=== PATIENT | female | born 1995 | race Caucasian/White ===

== ENCOUNTER → 2020-11-25 | Outpatient (CLI) | payer OTHER ==
--- NOTE | 2020-11-25 12:28 | REP ---
INDICATION: PAINFUL RT BREAST LUMP 12:00 POSITION ABOVE AREOLA. COMPARISON: None TECHNIQUE: Real-time sonographic evaluation of right breast performed. FINDINGS: The region of the painful palpable lump at 12 o'clock there is no evidence of a cystic or solid nodule. The adjacent retroareolar region is also unremarkable. IMPRESSION: BIRADS/ACR category 1, negative ultrasound right breast in the region of painful lump. RECOMMENDATION: Clinical correlation and follow-up recommended. <Electronically signed by Virgilio Bell > 11/25/20 2484
== END ==
LOC: M WHC 09:11
PROVIDERS: ATTEND Obstetrics & Gynecology
DX: N63.10 Unspecified lump in the right breast, unspecified quadrant (principal)